=== PATIENT | male | born 1955 ===

== ENCOUNTER 2023-09-01 16:29 | Emergency (ER) | payer OTHER, SELFPAY ==
[2023-09-01 16:34] VITALS: BP 152/90
[2023-09-01 17:05] LABS: % Basophils 0.6 % (0-2); % Eosinophils 1.7 % (0-6); % Immature Granulocytes 0.3 % (0-0.5); % Lymphocytes 11.5 % (20.5-51.1); % Monocytes 14.1 % (1.7-9.3); % Neutrophils 71.8 % (42.2-75.2); Absolute Eosinophils 0.1 10^3/uL (0-0.7); Absolute Lymphocytes 0.4 10^3/uL (1.2-3.4); Absolute Monocytes 0.5 10^3/uL (0.1-0.6); Absolute Neutrophils 2.6 10^3/uL (1.4-6.5); Hematocrit 40.3 % (39.0-52.0); Hemoglobin 14.3 g/dL (13.0-18.0); Mean Corp Hgb Conc. 35.5 g/dL (33.0-37.0); Mean Corpuscular Hgb 28.5 pg (27.0-31.0); Mean Corpuscular Volume 80.4 fL (80.0-94.0); Mean Platelet Volume 10.4 fL (7.4-10.4); Nucleated Red Blood Cells % 0 % (-); Platelet Count 81 10^3/uL (130-400); Red Blood Cell Count 5.01 10^6/uL (4.70-6.10); Red Cell Dist. Width 12.6 % (11.5-14.5); White Blood Cell Count 3.6 10^3/uL (4.8-10.8)
[2023-09-01 17:17] LABS: Lactic Acid 1.6 mmol/L (0.7-2.0)
[2023-09-01 17:19] LABS: ALT (SGPT) 23 U/L (0-50); AST (SGOT) 28 U/L (17-59); Albumin 4.4 g/dl (3.5-5.0); Alkaline Phosphatase 65 U/L (38-126); Blood Urea Nitrogen 19 mg/dl (9-20); Calcium 9.3 mg/dl (8.4-10.2); Carbon Dioxide 27 mmol/L (22-30); Chloride 100 mmol/L (98-107); Glucose 141 mg/dl (70-99); Potassium 4.8 mmol/L (3.5-5.1); Sodium 136 mmol/L (135-145); Total Bilirubin 0.9 mg/dl (0.2-1.3); Total Protein 6.9 g/dl (6.3-8.2)
--- NOTE | 2023-09-01 19:08 | ED.GENMED ---
History of Present Illness
General
Chief Complaint: Fatigue
Source: patient
Exam Limitations: none
Time Seen by Provider: 09/01/23 18:35
Travel History
Have you had any contact with someone who has COVID-19?: No
Do you have any symptoms of coronavirus? Fever > 100 degrees, chills, cough, shortness of breath, sore throat, loss of taste or smell, muscle aches, or headache?: No
History of Present Illness
History of Present Illness:
This is a 68 year old male that comes in with c/o Bronchitis. states that he was diagnosed with Bronchitis at on Wednesday. States that he was place on Augmentin. Then his Girlfriend called him and said that she has Pneumonia. States that he felt he
better get checked. States that he is not really coughing a lot. States that he had some chills and then sweats. States that he has slight SOB and he vomited once on the way here as he thought he was car sick. Denies any fever, chest pain, abd
pain, nausea, diarrhea, headache, dizziness, urinary burning.
Past History
Past History
ED Past Medical History: Cancer (CLL on [place] chemotherapy), CVA (TIA) and Other (Enlarged spleen)
ED Past Surgical History: Orthopedic (Right knee surgery)
Social History
Tobacco: Non-smoker
Alcohol: Occasional
Drug: None
Personal:
Living: alone
Employment: Employed
Review of Systems
Review of Systems
All Other Systems: ROS reviewed and negative except as documented in HPI and ROS
Constitutional: Reports chills; Denies fever
EENT: Reports no symptoms
Respiratory: Reports cough (Very slight) and trouble breathing
Cardiac: Denies chest pain
ABD/GI: Reports vomiting; Denies abdominal pain, nausea or diarrhea
: Reports no symptoms; Denies dysuria, frequency or urgency
Musculoskeletal: Reports no symptoms
Skin: Reports no symptoms
Neurological: Reports no symptoms; Denies dizzy or headache
Psychiatric: Reports no symptoms
Phy Exam
General Physical Exam
General Presentation: no apparent distress
General age: appears stated age
General Skin: warm and dry
General Habitus: elderly
General Mental: alert
General Hydration: appears well hydrated
ENT Exam
ENT Exam: TM's normal, pharynx normal and neck supple
Eye Exam
Eye Exam: EOMI
Cardiovascular Exam
Cardiovascular Exam: regular rate/rhythm, no edema, no murmur and normal peripheral pulses
Pulmonary Exam
Pulmonary Exam: lungs clear, no respiratory distress, no rales, chest non tender, no crackles, no rhonchi, no wheezing and other (Occasional dry cough noted)
Gastrointestinal Exam
Gastrointestinal Exam: normal bowel sounds, non tender, soft, no organomegaly, no pulsatile mass and non distended
Musculoskeletal Exam
Musculoskeletal Exam: full ROM and no edema
Skin Exam
Skin Exam: normal color, warm/dry, no rash and no petechia
Course
Orders/Labs/Results
Orders:
Orders
09/01/23 16:37
CR Chest - 2 Views Urgent
Comment:
Reason For Exam: SOB
09/01/23 16:49
Complete Blood Count/With Diff Urgent
Comprehensive Metabolic Panel Urgent
Lactic Acid Urgent
Blood Culture Urgent
CORINA Source: Blood/Venous
Specimen Description:
Abnormal Lab Results
09/01/23
16:49
WBC 3.6 L 10^3/uL
(4.8-10.8)
Plt Count 81 L 10^3/uL
(130-400)
Absolute Lymphs (auto) 0.4 L 10^3/uL
(1.2-3.4)
Lymphocytes % 11.5 L %
(20.5-51.1)
Monocytes % 14.1 H %
(1.7-9.3)
Glucose 141 H mg/dl
(70-99)
09/01/23 16:49
09/01/23 16:49
Leukopenia, Glucose nonfasting. Lactic acid normal 1.6
Vital Signs
Initial and Last Documented VS:
Initial Vital Signs
Temp Pulse Resp BP Pulse Ox
97.9 F 71 20 152/90 98
09/01/23 16:34 09/01/23 16:34 09/01/23 16:34 09/01/23 16:34 09/01/23 16:34
Last Documented Vital Signs
Temp Pulse Resp BP Pulse Ox
97.9 F 71 20 152/90 98
09/01/23 16:34 09/01/23 16:34 09/01/23 16:34 09/01/23 16:34 09/01/23 16:34
MDM/Problems Addressed
Differential Diagnosis Includes:
Bronchitis
MDM/Problems Addressed:
This is a 68 year old male that comes in with c/o Bronchitis. States that his girlfriend was diagnosed with PNA so he thought he better get checked.
Will get labs and X-ray.
Back into see patient. Explained that his chest x-ray is normal. Blood work shows a viral syndrome. Patient can continue with the antibiotic that he was given. Follow up with the PCP. Increase his water intake to 8-8oz glasses daily. Tylenol or
Ibuprofen for any fever. Return with any concerns.
Chronic conditions affecting care: Cancer
Acute Exacerbation and/or Progression of Chronic Illness: Cancer
*Radiology
Radiology exam reviewed: preliminary read by ED provider (Chest- Negative for active disease) and radiology read reviewed (Chest- No acute cardiopulmonary process)
*Pulse Oximetry
Patient hypoxic: no
*EKG
Interpreted by ED Provider?: NA
Rate: EKG- N/A
*Torpedo Shooter Interpretation
Rate: Torpedo Shooter- N/A
*Critical Care Note
Total Time (30-74mins, 75-104mins- exclusive of procedures): Not Applicable
ED Attending Note
-
Portions of this chart may have been created with voice recognition software.� Occasional wrong word or��sound alike� substitutions may have occurred due to the inherent limitations of voice recognition software.
Discharge Plan
Departure
Patient Disposition: Home (Routine Discharge)
Date of Disposition: 09/01/23
Time of Disposition: 19:41
Patient with high blood pressure during this ER visit?: Yes
Condition: Good
Covid-19: Not Applicable
Discharge Problem:
Bronchitis
Instructions: Bronchitis, Adult ED, BLOOD PRESSURE
Prescriptions:
No Action
atorvastatin 40 mg Tablet
40 mg PO QPM 30 Days Qty: 30 0RF
aspirin 81 mg Tablet,Chewable
81 mg PO DAILY Qty: 30 0RF
doxycycline hyclate 100 mg capsule
100 mg PO BID Qty: 20 0RF
Activity Restrictions/Additional Instructions:
As discussed, your blood work is normal, Your Chest X-ray is negative for any acute process. Please increase your water intake to 8-8oz glasses daily. You may continue with the antibiotic that you have been given. Follow up with the family doctor
for recheck. Tylenol or Ibuprofen for any fever. IF YOU HAVE INCREASED SHORTNESS OF BREATH, CHEST PAIN, OR YOU HAVE ANY OTHER CONCERNS PLEASE RETURN TO THE EMERGENCY ROOM.
Interventions
Interventions:
*Risk Screen - Suicide Last Done: 09/01/23 16:34
*General Assessment Last Done: 09/01/23 16:34
*Neglect/Abuse Screening Last Done: 09/01/23 16:34
Discharge Date and Time
Print Language: MALAYSIAN
[2023-09-01 20:02] VITALS: BP 144/89
== END 2023-09-01 20:03 | disposition home or self-care (01) ==
LOC: EMR 16:29
PROVIDERS: Student in an Organized Health Care Education/Training Program; EMERGENCY PHYSICIAN Emergency Medicine
DX: J40 Bronchitis, not specified as acute or chronic (principal); R03.0 Elevated blood-pressure reading, without diagnosis of hypertension
CPT/HCPCS: 99284; 71046; 80053; 83605; 85025; 87040